=== PATIENT | female | born 1980 | race Caucasian/White ===

== ENCOUNTER 2017-01-17 08:15 | Emergency (ER) | payer MEDICARE, MEDICAID ==
--- NOTE | 2017-01-17 09:45 | UC ---
Throat Pain/Nasal Vivek HPI - HPI Summary HPI Summary: 36 female presents with complaints of throat pain, loss of her voice and nasal congestion that began yesterday and has gotten progressively worse. Patient states she also has had a productive cough and intermittent headache for the past week. States she coughs of phlegm with no color and denies hemopytsis. She has been using Lozenges for her throat which do seem to help her. Denies difficulty breathing, chest pain and abdominal pain. Does admit to some nausea that she associates with swallowing nasal congestion. Denies vomiting. Her sore throat and cough are worse in the morning and get better throughout the day. States she has had chills and her mother told her she had a temperature. - History of Current Complaint Chief Complaint: UCRespiratory Stated Complaint: SORE THROAT FEVER Time Seen by Provider: 01/17/17 09:07 Hx Obtained From: Patient Hx Last Menstrual Period: "...two years ago...PCOS" ?: No Onset/Duration: Sudden Onset, Lasting Days, Worse Since Pain Intensity: 4 Pain Scale Used: 0-10 Numeric Cough: Sputum Appears - phlegm Associated Signs & Symptoms: Positive: Dysphagia, Hoarseness, Sinus Discomfort, Nasal Discharge - Epiglottits Risk Factors Epiglottis Risk Factors: Negative - Allergies/Home Medications Allergies/Adverse Reactions: Allergies Allergy/AdvReac Type Severity Reaction Status Date / Time Penicillins Allergy Intermediate hives, Verified 01/17/17 09:08 difficulty breathing Amoxicillin Allergy Swelling Verified 01/17/17 09:08 Of Face,Lips,& Throat Erythromycin Allergy Swelling Verified 01/17/17 09:08 Of Face,Lips,& Throat Shellfish Allergy Allergy Swelling Verified 01/17/17 09:08 Of Face,Lips,& Throat Peanut-derived AdvReac GI Upset Verified 01/17/17 09:08 Pork Allergy AdvReac GI Upset Verified 01/17/17 09:08 PMH/Surg Hx/FS Hx/Imm Hx Cardiovascular History Of: Reports: Hypertension Respiratory History Of: Reports: Asthma Psychological History Of: Reports: Depression, Bipolar Disorder - Surgical History Surgical History: Yes Surgery Procedure, Year, and Place: scar tissue scraping of discs in L-spine, herniated disc repair, appy, ovarian cyst removal, 3 lumpectomy's on breast. - Family History Known Family History: Positive: Hypertension, Diabetes - Social History Alcohol Use: None Substance Use Type: None Smoking Status (MU): Never Smoked Tobacco - Immunization History Most Recent Influenza Vaccination: October 2016 Most Recent Tetanus Shot: October 2016 Review of Systems Constitutional: Chills Skin: Negative Eyes: Negative ENT: Sore Throat, Ear Ache, Nasal Discharge Respiratory: Cough Cardiovascular: Negative Gastrointestinal: Negative Musculoskeletal: Negative Neurological: Headache Psychological: Negative All Other Systems Reviewed And Are Negative: Yes Physical Exam Triage Information Reviewed: Yes Appearance: Well-Appearing, No Pain Distress, Well-Nourished Vital Signs: Initial Vital Signs Temp 98.6 F 01/17/17 09:05 Pulse 82 01/17/17 09:05 Resp 18 01/17/17 09:05 BP 98/60 01/17/17 09:05 Pulse Ox 98 01/17/17 09:05 Repeated BP and was in normal range. Vital Signs Reviewed: Yes Eyes: Positive: Conjunctiva Clear ENT: Positive: Normal ENT inspection, Hearing grossly normal, Pharynx normal, TMs normal, Muffled/hoarse voice - hoarse, raspy voice upon speaking, not muffled or "hot potato" sounding. patient had tonsillectomy, Other:. Negative: Nasal congestion, Nasal drainage, Tonsillar swelling - no tonsils due to tonsillectomy Dental: Positive: Percussion Tenderness @ - frontal sinuses per patient. Negative: Cervical Lymphadenopathy Neck: Positive: Supple, Nontender Respiratory: Positive: Chest non-tender, Lungs clear, Normal breath sounds, No respiratory distress, No accessory muscle use Cardiovascular: Positive: RRR, No Murmur, Pulses Normal Abdomen Description: Positive: Nontender, No Organomegaly, Soft Bowel Sounds: Positive: Present Musculoskeletal: Positive: Strength Intact, ROM Intact Neurological Exam: Normal Psychological Exam: Normal Skin Exam: Normal Throat Pain/Nasal Course/Dx - Course Course Of Treatment: due to physical exam findings patient will be instructed to take symptomatic measures at this time. - Differential Dx/Diagnosis Differential Diagnosis/HQI/PQRI: Laryngitis, Pharyngitis, URI Provider Diagnoses: Rhinosinusitis, Acute Laryngitis Discharge - Discharge Plan Condition: Stable Disposition: HOME Patient Education Materials: Rhinosinusitis (ED), Laryngitis (ED) Referrals: MERARY Lovell [Primary Care Provider] - Additional Instructions: Recommend using saline rinses/monique pots for nasal congestion and gargling with salt water to soothe throat. You may also continue using lozenges and Chloraseptic spray for sore throat. Take hot showers and use a humidifier in your room at night. Rest your voice. Blow your nose rather than sniffling. Wash hands and drink plenty of fluids. If you develop a high fever or feel as though your symptoms are worsening withing the next 7-10 days rather than improving please seek medical attention.
[2017-01-17 09:53] VITALS: BP 121/62
== END 2017-01-17 09:53 | disposition home or self-care (01) ==
LOC: UCCORT 08:15
DX: J32.9 Chronic sinusitis, unspecified (principal); J04.0 Acute laryngitis; Z88.1 Allergy status to other antibiotic agents; Z88.0 Allergy status to penicillin
CPT/HCPCS: 99212; G0463

== ENCOUNTER 2017-02-09 11:03 | Emergency (ER) | payer MEDICARE, MEDICAID | END 2017-02-09 13:39 | disposition left against medical advice (07) | LOC: UCCORT 11:03 | DX: R21 Rash and other nonspecific skin eruption (principal); Z53.21 Procedure and treatment not carried out due to patient leaving prior to being seen by health care provider ==

== ENCOUNTER 2017-02-09 17:35 | Emergency (ER) | payer MEDICARE, MEDICAID ==
[2017-02-09 19:04] VITALS: BP 111/69
--- NOTE | 2017-02-09 19:25 | UC ---
Skin Complaint HPI - HPI Summary HPI Summary: patient has a large red area on left buttock was oozing but is now scabbed over. - History of Current Complaint Chief Complaint: UCSkin Time Seen by Provider: 02/09/17 19:05 Stated Complaint: SKIN COMPLAINT Hx Obtained From: Patient Hx Last Menstrual Period: polycystic ovary ?: No Onset/Duration: Sudden Onset, Lasting Days Timing: Constant Current Severity: Moderate Location: Discrete - left buttock Character: Redness Aggravating: Nothing Alleviating: Nothing - Allergy/Home Medications Allergies/Adverse Reactions: Allergies Allergy/AdvReac Type Severity Reaction Status Date / Time Penicillins Allergy Intermediate hives, Verified 02/09/17 19:04 difficulty breathing Amoxicillin Allergy Swelling Verified 02/09/17 19:04 Of Face,Lips,& Throat Erythromycin Allergy Swelling Verified 02/09/17 19:04 Of Face,Lips,& Throat Shellfish Allergy Allergy Swelling Verified 02/09/17 19:04 Of Face,Lips,& Throat Peanut-derived AdvReac GI Upset Verified 02/09/17 19:04 Pork Allergy AdvReac GI Upset Verified 02/09/17 19:04 Review of Systems Constitutional: Negative Skin: Other - redness on bottock Eyes: Negative ENT: Negative Respiratory: Negative Cardiovascular: Negative Gastrointestinal: Negative Genitourinary: Negative Motor: Negative Neurovascular: Negative Musculoskeletal: Negative Neurological: Negative Psychological: Negative All Other Systems Reviewed And Are Negative: Yes PMH/Surg Hx/FS Hx/Imm Hx Previously Healthy: Yes Cardiovascular History Of: Reports: Hypertension Respiratory History Of: Reports: Asthma Psychological History Of: Reports: Depression, Bipolar Disorder - Surgical History Surgical History: Yes Surgery Procedure, Year, and Place: scar tissue scraping of discs in L-spine, herniated disc repair, appy, ovarian cyst removal, 3 lumpectomy's on breast. - Family History Known Family History: Positive: Hypertension, Diabetes - Social History Alcohol Use: None Substance Use Type: None Smoking Status (MU): Never Smoked Tobacco - Immunization History Most Recent Influenza Vaccination: October 2016 Most Recent Tetanus Shot: October 2016 Physical Exam Triage Information Reviewed: Yes Appearance: Well-Appearing, Well-Nourished, Pain Distress Vital Signs: Initial Vital Signs Temp 98.2 F 02/09/17 19:00 Pulse 81 02/09/17 19:00 Resp 17 02/09/17 19:00 BP 111/69 02/09/17 19:00 Pulse Ox 100 02/09/17 19:00 Vital Signs Reviewed: Yes Eye Exam: Normal Eyes: Positive: Conjunctiva Clear ENT Exam: Normal ENT: Positive: Normal ENT inspection, Hearing grossly normal, Pharynx normal, TMs normal Dental Exam: Normal Neck exam: Normal Neck: Positive: Supple, Nontender, No Lymphadenopathy Respiratory Exam: Normal Respiratory: Positive: Chest non-tender, Lungs clear, Normal breath sounds Cardiovascular Exam: Normal Cardiovascular: Positive: RRR, No Murmur, Pulses Normal Abdominal Exam: Normal Abdomen Description: Positive: Nontender, No Organomegaly, Soft Bowel Sounds: Positive: Present Musculoskeletal Exam: Normal Neurological Exam: Normal Psychological Exam: Normal Skin: Positive: significant lesion(s) - 8 cm area of induration and erythema on the left buttock. no fluctuance, no drainage. Course/Dx - Course Course Of Treatment: hx obtained, exam performed, meds reviewed, abx prescribed for abcess - Differential Diagnoses - Skin Complaint Differential Diagnoses: Abscess, Cellulitis, Contact Dermatitis, MRSA - Diagnoses Provider Diagnoses: abcess Discharge - Discharge Plan Condition: Stable Disposition: HOME Prescriptions: Sulfamethox/Trimethoprim DS* [Bactrim DS 800/160 TAB*] 1 tab PO BID #20 tab Patient Education Materials: Furunculosis and Carbunculosis (ED) Additional Instructions: Take the medication as prescribed. follow up with your doctor if symptoms worsen , you develop a fever or is not improving.
== END 2017-02-09 19:36 | disposition home or self-care (01) ==
LOC: UCCORT 17:35
DX: L02.31 Cutaneous abscess of buttock (principal); Z88.1 Allergy status to other antibiotic agents; Z88.0 Allergy status to penicillin
CPT/HCPCS: 99212; G0463

== ENCOUNTER 2017-04-02 07:15 | Emergency (ER) | payer MEDICARE, MEDICAID ==
[2017-04-02 07:25] VITALS: BP 104/62
--- NOTE | 2017-04-02 07:49 | UC ---
Skin Complaint HPI - HPI Summary HPI Summary: "I believe I have cellulitis.." Patient c/o lump behind left ear, redness and swelling at the site. Pt states it started thrusday and has progressively gotten larger and more painful. States history of MRSA, last issue was 2-3 months ago and was treated with antibiotics. [ End ] - History of Current Complaint Chief Complaint: UCSkin Time Seen by Provider: 04/02/17 07:40 Stated Complaint: SKIN COMPLAINT Hx Obtained From: Patient Hx Last Menstrual Period: 2 years ago, PCOS ?: No Onset/Duration: Gradual Onset Skin Exposure Onset/Duration: Minutes Ago Timing: Constant Onset Severity: Moderate Aggravating: Nothing Alleviating: Nothing Associated Signs & Symptoms: Positive: Negative - Allergy/Home Medications Allergies/Adverse Reactions: Allergies Allergy/AdvReac Type Severity Reaction Status Date / Time Penicillins Allergy Intermediate hives, Verified 04/02/17 07:25 difficulty breathing Amoxicillin Allergy Swelling Verified 04/02/17 07:25 Of Face,Lips,& Throat Erythromycin Allergy Swelling Verified 04/02/17 07:25 Of Face,Lips,& Throat Shellfish Allergy Allergy Swelling Verified 04/02/17 07:25 Of Face,Lips,& Throat Peanut-derived AdvReac GI Upset Verified 04/02/17 07:25 Pork Allergy AdvReac GI Upset Verified 04/02/17 07:25 Review of Systems Constitutional: Negative Skin: Other - MRSA in past Eyes: Negative ENT: Negative Respiratory: Negative Cardiovascular: Negative Gastrointestinal: Negative Genitourinary: Negative Motor: Negative Neurovascular: Negative Musculoskeletal: Negative Neurological: Negative Psychological: Negative All Other Systems Reviewed And Are Negative: Yes PMH/Surg Hx/FS Hx/Imm Hx Previously Healthy: Yes Endocrine History Of: Denies: Thyroid Disease Cardiovascular History Of: Reports: Hypertension Respiratory History Of: Reports: Asthma Psychological History Of: Reports: Depression, Bipolar Disorder - Surgical History Surgical History: Yes Surgery Procedure, Year, and Place: scar tissue scraping of discs in L-spine, herniated disc repair, appy, ovarian cyst removal, 3 lumpectomy's on breast. - Family History Known Family History: Positive: Hypertension, Diabetes - Social History Occupation: Unemployed Lives: With Family Alcohol Use: None Substance Use Type: None Smoking Status (MU): Never Smoked Tobacco - Immunization History Most Recent Influenza Vaccination: October 2016 Most Recent Tetanus Shot: October 2016 Physical Exam Triage Information Reviewed: Yes Appearance: Well-Appearing, No Pain Distress, Well-Nourished Vital Signs: Initial Vital Signs Temp 97.4 F 04/02/17 07:17 Pulse 76 04/02/17 07:17 Resp 16 04/02/17 07:17 BP 104/62 04/02/17 07:17 Pulse Ox 97 04/02/17 07:17 Vital Signs Reviewed: Yes Eye Exam: Normal ENT: Positive: Normal ENT inspection Dental Exam: Normal Neck exam: Normal Respiratory Exam: Normal Cardiovascular Exam: Normal Musculoskeletal Exam: Normal Neurological Exam: Normal Psychological Exam: Normal Skin Exam: Normal Skin: Positive: Other - LEFT occipital area of the scalp with small rounf red raised fluctuance with center withy dried brown disharge present. no liquid discharge. no streaking. NECK with FROM. Neg Kernig Course/Dx - Course Course Of Treatment: Since already been hot packing the area and had discharge last night will continue that and if redness spreads then she may start the antibiotic as she is aware of S/S of cellulitis as she had it 2 months ago and her mother currently has it. - Diagnoses Provider Diagnoses: abscess scalp with history of MRSA Discharge - Discharge Plan Condition: Good Disposition: HOME Prescriptions: Sulfamethox/Trimethoprim DS* [Bactrim DS 800/160 TAB*] 1 tab PO BID #20 tab Patient Education Materials: MRSA (Methicillin-Resistant Staphylococcus Aureus ) (ED) Referrals: MERARY Lovell [Primary Care Provider] - 3 Days Additional Instructions: WE DISCUSSED IF YOUR REDNESS SPREADS AND APPEARS TO BE BECOMING CELLULITIS LIKE YOU HAD A COUPLE MONTHS AGO THEN YOU MAY START THE ANTIBIOTIC.
== END 2017-04-02 08:00 | disposition home or self-care (01) ==
LOC: UCCORT 07:15
DX: L02.811 Cutaneous abscess of head [any part, except face] (principal); Z86.14 Personal history of Methicillin resistant Staphylococcus aureus infection; J45.909 Unspecified asthma, uncomplicated; I10 Essential (primary) hypertension; F31.9 Bipolar disorder, unspecified; Z88.1 Allergy status to other antibiotic agents; Z88.0 Allergy status to penicillin; Z91.010 Allergy to peanuts; Z91.013 Allergy to seafood
CPT/HCPCS: 99212; G0463

== ENCOUNTER 2017-08-20 12:49 | Emergency (ER) | payer MEDICARE, MEDICAID ==
[2017-08-20 13:24] VITALS: BP 98/62
--- NOTE | 2017-08-20 13:43 | UC ---
Skin Complaint HPI - HPI Summary HPI Summary: sore right side of face x 5 days + redness, swollen , painful no fever, no chills - History of Current Complaint Chief Complaint: UCSkin Time Seen by Provider: 08/20/17 13:27 Stated Complaint: SKIN CONCERN Hx Obtained From: Patient Hx Last Menstrual Period: unknown, 2 year ago ?: No Onset/Duration: Gradual Onset, Lasting Days - 5, Still Present Timing: Constant Onset Severity: Moderate Current Severity: Moderate Pain Intensity: 5 Pain Scale Used: 0-10 Numeric Location: Discrete - right side of face Character: Swelling, Pain, Redness, Raised, Painful Aggravating Factor(s): Touch Alleviating Factor(s): Nothing Associated Signs & Symptoms: Negative: Nausea, Vomiting, Numbness, Fever, Chills , Cough - Allergy/Home Medications Allergies/Adverse Reactions: Allergies Allergy/AdvReac Type Severity Reaction Status Date / Time Penicillins Allergy Intermediate hives, Verified 08/20/17 13:24 difficulty breathing Amoxicillin Allergy Swelling Verified 08/20/17 13:24 Of Face,Lips,& Throat Erythromycin Allergy Swelling Verified 08/20/17 13:24 Of Face,Lips,& Throat Shellfish Allergy Allergy Swelling Verified 08/20/17 13:24 Of Face,Lips,& Throat Peanut-derived AdvReac GI Upset Verified 08/20/17 13:24 Pork Allergy AdvReac GI Upset Verified 08/20/17 13:24 Home Medications: Home Medications SUMAtriptan TAB* [Imitrex TAB*] 50 mg PO DAILY PRN 08/20/17 [History Confirmed 08/20/17] Review of Systems Constitutional: Negative Skin: Negative Eyes: Negative ENT: Negative Respiratory: Negative Is Patient Immunocompromised?: No All Other Systems Reviewed And Are Negative: Yes PMH/Surg Hx/FS Hx/Imm Hx Cardiovascular History: Hypertension - Surgical History Surgical History: Yes Surgery Procedure, Year, and Place: scar tissue scraping of discs in L-spine, herniated disc repair, appy, ovarian cyst removal, 3 lumpectomy's on breast. - Family History Known Family History: Positive: Hypertension, Diabetes - Social History Alcohol Use: None Substance Use Type: None Smoking Status (MU): Never Smoked Tobacco - Immunization History Most Recent Influenza Vaccination: 2016 Most Recent Tetanus Shot: October 2016 Physical Exam Triage Information Reviewed: Yes Appearance: Well-Appearing, No Pain Distress, Well-Nourished Vital Signs: Initial Vital Signs Temp 98.4 F 08/20/17 13:18 Pulse 91 08/20/17 13:18 Resp 18 08/20/17 13:18 BP 98/62 08/20/17 13:18 Pulse Ox 98 08/20/17 13:18 Vital Signs Reviewed: Yes Eyes: Positive: Conjunctiva Clear ENT: Positive: Normal ENT inspection, Hearing grossly normal, Pharynx normal Neck exam: Normal Neck: Positive: Supple, Nontender, No Lymphadenopathy Respiratory: Positive: Chest non-tender, Lungs clear, Normal breath sounds Cardiovascular: Positive: RRR, No Murmur, Pulses Normal Neurological Exam: Normal Skin: Positive: Other - face right side: + erythema , swelling , tenderness Course/Dx - Diagnoses Provider Diagnoses: cellulitis face Discharge - Discharge Plan Condition: Stable Disposition: HOME Prescriptions: Clindamycin Cap(NF) [Clindamycin Cap 300 mg Cap(NF)] 300 mg PO TID #30 cap Mupirocin 2% CREAM* [Bactroban 2% CREAM*] 1 applic TOPICAL BID #1 tube Patient Education Materials: Cellulitis (ED) Referrals: Adelaide Gooden PA [Primary Care Provider] - 5 Days
== END 2017-08-20 13:36 | disposition home or self-care (01) ==
LOC: UCCORT 12:49
DX: L03.211 Cellulitis of face (principal)
CPT/HCPCS: 99212; G0463

== ENCOUNTER 2018-02-02 09:53 | Emergency (ER) | payer MEDICARE, MEDICAID ==
[2018-02-02 10:51] VITALS: BP 116/66
--- NOTE | 2018-02-02 11:01 | UC ---
Throat Pain/Nasal Vivek HPI - HPI Summary HPI Summary: SORE THROAT X 1 DAY NASAL CONGESTION , PND, SINUS PAIN AND PRESSURE + COUGH NO FEVER, NO CHILLS - History of Current Complaint Chief Complaint: UCGeneralIllness Stated Complaint: SORE THROAT,SINUS Time Seen by Provider: 02/02/18 10:55 Hx Obtained From: Patient Hx Last Menstrual Period: 2 YEARS AGO Onset/Duration: Gradual Onset, Lasting Days - 1, Still Present Severity: Moderate Pain Intensity: 8 Cough: Nonproductive Associated Signs & Symptoms: Positive: Sinus Discomfort, Nasal Discharge. Negative: Wheezing, Hoarseness, Fever, Vomiting, Rash - Allergies/Home Medications Allergies/Adverse Reactions: Allergies Allergy/AdvReac Type Severity Reaction Status Date / Time MS Penicillins [Penicillins] Allergy Intermediate hives, Verified 08/20/17 13:24 difficulty breathing MS Amoxicillin [Amoxicillin] Allergy Swelling Verified 08/20/17 13:24 Of Face,Lips,& Throat MS Erythromycin Allergy Swelling Verified 08/20/17 13:24 [Erythromycin] Of Face,Lips,& Throat MS Shellfish Allergy Allergy Swelling Verified 08/20/17 13:24 [Shellfish Allergy] Of Face,Lips,& Throat MS Peanut-derived AdvReac GI Upset Verified 08/20/17 13:24 [Peanut-derived] MS Pork Allergy AdvReac GI Upset Verified 08/20/17 13:24 [Pork Allergy] PMH/Surg Hx/FS Hx/Imm Hx - Additional Past Medical History Additional PMH: PCOS, self cath due to problem with back surgery Cardiovascular History: Hypertension - Surgical History Surgical History: Yes Surgery Procedure, Year, and Place: scar tissue scraping of discs in L-spine, herniated disc repair, appy, ovarian cyst removal, 3 lumpectomy's on breast. - Family History Known Family History: Positive: Hypertension, Diabetes - Social History Alcohol Use: None Substance Use Type: None Smoking Status (MU): Never Smoked Tobacco - Immunization History Most Recent Influenza Vaccination: 2016 Most Recent Tetanus Shot: October 2016 Review of Systems Constitutional: Negative Skin: Negative Eyes: Negative ENT: Sore Throat, Ear Ache, Nasal Discharge, Sinus Congestion, Sinus Pain/ Tenderness Respiratory: Cough Cardiovascular: Negative Gastrointestinal: Negative Is Patient Immunocompromised?: No All Other Systems Reviewed And Are Negative: Yes Physical Exam Triage Information Reviewed: Yes Appearance: Well-Appearing, No Pain Distress, Obese Vital Signs: Initial Vital Signs Temp 97.3 F 02/02/18 10:46 Pulse 87 02/02/18 10:46 Resp 20 02/02/18 10:46 BP 116/66 02/02/18 10:46 Pulse Ox 98 02/02/18 10:46 Vital Signs Reviewed: Yes Eyes: Positive: Conjunctiva Clear ENT: Positive: Normal ENT inspection, Hearing grossly normal, Pharynx normal, Nasal congestion, TMs normal Neck: Positive: Supple, Nontender, No Lymphadenopathy Respiratory: Positive: Chest non-tender, Lungs clear, Normal breath sounds Cardiovascular: Positive: RRR, No Murmur, Pulses Normal Skin Exam: Normal Throat Pain/Nasal Course/Dx - Differential Dx/Diagnosis Provider Diagnoses: URI Discharge - Discharge Plan Condition: Stable Disposition: HOME Patient Education Materials: Upper Respiratory Infection (ED) Referrals: Adelaide Gooden PA [Primary Care Provider] - If Needed
== END 2018-02-02 11:04 | disposition home or self-care (01) ==
LOC: UCCORT 09:53
DX: J06.9 Acute upper respiratory infection, unspecified (principal); Z88.1 Allergy status to other antibiotic agents; Z88.0 Allergy status to penicillin; Z91.013 Allergy to seafood
CPT/HCPCS: 99212; G0463

== ENCOUNTER 2019-03-05 13:41 | Emergency (ER) | payer MEDICARE, MEDICAID ==
[2019-03-05 15:41] VITALS: BP 133/66
--- NOTE | 2019-03-05 15:50 | UC ---
Respiratory Complaint HPI - HPI Summary HPI Summary: 38-year-old woman comes in with 2 weeks of upper respiratory tract infection symptoms. She's got a runny nose with discolored rhinorrhea to include some blood. Has a lot of sinus pressure. She's tried [id number] medications which helped some with the symptoms. Patient has chest congestion and has had increased wheezing. She's been using her albuterol for wheezing which does help. Does not feel short of breath at rest. - History of Current Complaint Chief Complaint: UCRespiratory Stated Complaint: SINUSES, FEVER Time Seen by Provider: 03/05/19 15:34 Hx Last Menstrual Period: 2 years ago; hx PCOS Pain Intensity: 5 - Allergies/Home Medications Allergies/Adverse Reactions: Allergies Allergy/AdvReac Type Severity Reaction Status Date / Time erythromycin base Allergy Swelling Verified 03/05/19 15:33 Of Face,Lips,& Throat peanut Allergy GI Upset Verified 03/05/19 15:33 Penicillins Allergy Difficulty Verified 03/05/19 15:33 Breathing/Wheezing Pork/Porcine Containing Allergy GI Upset Verified 03/05/19 15:33 Products shellfish derived Allergy Swelling Verified 03/05/19 15:33 Of Face,Lips,& Throat Home Medications: Home Medications Esomeprazole Magnesium [Nexium] 40 mg DAILY 03/05/19 [History Confirmed 03/05/19 ] Gabapentin CAP(*) [Neurontin 400 mg CAP(*)] 600 mg TID 03/05/19 [History Confirmed 03/05/19] Lisinopril TAB* [Prinivil TAB*] 20 mg PO QPM 03/05/19 [History Confirmed ] Montelukast Sodium TAB* [Singulair TAB*] 10 mg PO BEDTIME 03/05/19 [History Confirmed 03/05/19] SUMAtriptan TAB* [Imitrex TAB*] 1 tab TID PRN 03/05/19 [History Confirmed ] lamoTRIgine TAB(*) [Lamictal TAB(*)] 200 mg QPM 03/05/19 [History Confirmed ] PMH/Surg Hx/FS Hx/Imm Hx Previously Healthy: Yes Cardiovascular History: Hypertension Respiratory History: Asthma GI/ History: Gastroesophageal Reflux - Surgical History Surgical History: Yes Surgery Procedure, Year, and Place: scar tissue scraping of discs in L-spine, herniated disc repair, appy, ovarian cyst removal, 3 lumpectomy's on breast. - Family History Known Family History: Positive: Hypertension, Diabetes - Social History Alcohol Use: None Substance Use Type: None Smoking Status (MU): Never Smoked Tobacco - Immunization History Most Recent Influenza Vaccination: 2016 Most Recent Tetanus Shot: October 2016 Review of Systems All Other Systems Reviewed And Are Negative: Yes Constitutional: Positive: Negative Skin: Positive: Negative Eyes: Positive: Negative ENT: Positive: Nasal Discharge, Sinus Congestion, Sinus Pain/Tenderness Respiratory: Positive: Cough, Other - see hpi Cardiovascular: Positive: Negative Gastrointestinal: Positive: Negative Motor: Positive: Negative Neurovascular: Positive: Negative Musculoskeletal: Positive: Negative Neurological: Positive: Negative Psychological: Positive: Negative Is Patient Immunocompromised?: No Physical Exam Triage Information Reviewed: Yes Appearance: No Pain Distress, Well-Nourished, Ill-Appearing - mild Vital Signs: Initial Vital Signs Temp 98.4 F 03/05/19 15:36 Pulse 85 03/05/19 15:36 Resp 18 03/05/19 15:36 BP 133/66 03/05/19 15:36 Pulse Ox 100 03/05/19 15:36 Vital Signs Reviewed: Yes Eye Exam: Normal Eyes: Positive: Conjunctiva Clear ENT: Positive: Pharyngeal erythema, Nasal congestion, Nasal drainage, TMs normal Neck exam: Normal Neck: Positive: Supple Respiratory: Positive: Lungs clear, Normal breath sounds, No respiratory distress Cardiovascular: Positive: RRR Musculoskeletal Exam: Normal Musculoskeletal: Positive: Strength Intact, ROM Intact Neurological Exam: Normal Neurological: Positive: Alert, Muscle Tone Normal Psychological Exam: Normal Psychological: Positive: Age Appropriate Behavior Skin Exam: Normal Respiratory Course/Dx - Differential Dx/Diagnosis Provider Diagnosis: Sinusitis, Bronchitis Discharge - Sign-Out/Discharge Documenting (check all that apply): Patient Departure All imaging exams completed and their final reports reviewed: No Studies - Discharge Plan Condition: Stable Disposition: HOME Prescriptions: DOXYcycline CAP(*) [DOXYcycline 100MG CAP(*)] 100 mg PO BID #20 cap Patient Education Materials: Sinusitis (ED), Acute Bronchitis (ED) Referrals: Adelaide Gooden PA [Primary Care Provider] - Additional Instructions: FOLLOW UP WITH YOUR DOCTOR IF NOT COMPLETELY IMPROVED. GET REEVALUATED SOONER FOR WORSENING OF YOUR CONDITION OR QUESTIONS OR CONCERNS. - Billing Disposition and Condition Condition: STABLE Disposition: Home
== END 2019-03-05 15:55 | disposition home or self-care (01) ==
LOC: UCCORT 13:41
DX: J01.90 Acute sinusitis, unspecified (principal); J20.9 Acute bronchitis, unspecified; I10 Essential (primary) hypertension; J45.909 Unspecified asthma, uncomplicated; K21.9 Gastro-esophageal reflux disease without esophagitis; Z88.3 Allergy status to other anti-infective agents; Z88.0 Allergy status to penicillin; Z79.899 Other long term (current) drug therapy
CPT/HCPCS: 99212; G0463